=== PATIENT | male | born 1995 ===

== ENCOUNTER 2017-10-09 19:20 | Emergency (ER) | payer BC ==
[2017-10-09 19:35] VITALS: BP 120/74; PULSE 99; RESP 16; TEMP 97.9; O2SAT 98
--- NOTE | 2017-10-09 19:47 | ED PDOC ---
HPI: General Adult Time Seen by Provider: 10/09/17 19:40 Chief Complaint (Nursing): Lower Extremity Problem/Injury Chief Complaint (Provider): Ankle Injury History Per: Patient History/Exam Limitations: no limitations Onset/Duration Of Symptoms: Hrs (x 8) Current Symptoms Are (Timing): Still Present Additional Complaint(s): Tj is a 22 y/o male who presents to the ED complaining of left foot and ankle pain. Patient states that he was running and stepped off of a curb causing injury to foot and ankle. He has taken advil for the pain which did help. Patient able to walk and bear weight but with pain. PMD: Dr. Henry Past Medical History Reviewed: Historical Data, Nursing Documentation, Vital Signs Vital Signs: Last Vital Signs Temp 97.9 F 10/09/17 19:32 Pulse 99 H 10/09/17 19:32 Resp 16 10/09/17 19:32 BP 120/74 10/09/17 19:32 Pulse Ox 98 10/09/17 19:51 - Medical History PMH: No Chronic Diseases - Family History Family History: States: No Known Family Hx - Living Arrangements Living Arrangements: With Family - Social History Current smoker - smoking cessation education provided: No Alcohol: None Drugs: Denies - Home Medications Home Medications: Ambulatory Orders Medication Instructions Recorded Cyclobenzaprine HCl [Flexeril] 10 mg PO HS #10 tab 06/23/15 Ibuprofen [Motrin] 600 mg PO Q6 PRN #10 tab 06/23/15 - Allergies Allergies/Adverse Reactions: Allergies Allergy/AdvReac Type Severity Reaction Status Date / Time peanut Allergy ANAPHYLAXIS Verified 10/09/17 19:32 soy Allergy ANAPHYLAXIS Verified 10/09/17 19:32 tree nut Allergy ANAPHYLAXIS Verified 10/09/17 19:32 Review of Systems ROS Statement: Except As Marked, All Systems Reviewed And Found Negative Musculoskeletal: Positive for: Other (left foot and ankle injury) Physical Exam - Reviewed Nursing Documentation Reviewed: Yes Vital Signs Reviewed: Yes - Physical Exam Appears: Positive for: Well, Non-toxic, No Acute Distress Skin: Positive for: Normal Color. Negative for: Rash Eye Exam: Positive for: Normal appearance Back: Positive for: Normal Inspection. Negative for: L CVA Tenderness, R CVA Tenderness, Vertebral Tenderness, Decreased ROM Extremity: Positive for: Tenderness (diffusely to left foot and ankle region ), Swelling (diffuse left foot and ankle). Negative for: Deformity (no obvious bony deformity) Neurologic/Psych: Positive for: Alert, Oriented. Negative for: Motor/Sensory Deficits - ECG O2 Sat by Pulse Oximetry: 98 (RA) Pulse Ox Interpretation: Normal - Other Rad Left foot and ankle x-ray X-Ray: Interpreted by Me, Viewed By Me X-Ray Interpretation: no fx, no dis Medical Decision Making Medical Decision Making: Time: 19:44 Initial Impression: 22 y/o male with left foot and ankle injury status post fall Initial Plan: --XR Ankle Left 3 Views --XR Foot Left 3 Views --Pain meds declined in ED Patient is aware of x-ray results, all questions answered. Crutches provided, patient was instructed on proper use of crutches. Aircast and Will wrap applied. Patient advised to continue with ibuprofen for pain and was referred to podiatry clinic for follow up. Scribe Attestation: Documented by Shelton Tamez, acting as a scribe for Brittanie Figueroa PA-C. Provider Scribe Attestation: All medical record entries made by the Scribe were at my direction and personally dictated by me. I have reviewed the chart and agree that the record accurately reflects my personal performance of the history, physical exam, medical decision making, and the department course for this patient. I have also personally directed, reviewed, and agree with the discharge instructions and disposition. Procedures - Splinting Location: left foot and ankle Pre-Made Type: will wrap and aircast Pre-Proc Neuro Vasc Exam: normal Post-Proc Neuro Vasc Exam: normal Disposition - Clinical Impression Clinical Impression: Foot sprain, Ankle sprain and strain - Patient ED Disposition Is Patient to be Admitted: No Counseled Patient/Family Regarding: Studies Performed, Diagnosis, Need For Followup - Disposition Referrals: Podiatry Clinic [Outside] Disposition: Routine/Home Disposition Time: 20:34 Condition: STABLE Additional Instructions: Ice, rest and elevate affected area. Continue with [id number] ibuprofen for pain as needed. Follow up with primary doctor or podiatry clinic for any persistent symptoms. Instructions: Foot Sprain (DC), Ankle Sprain, How to Use Crutches Forms: [facility] (Mauritian), [facility] School/Work Excuse
--- NOTE | 2017-10-10 11:30 | RAD ---
PROCEDURE: Left Foot Radiographs. HISTORY: trauma COMPARISON: None. FINDINGS: BONES: Normal. No fracture. JOINTS: Normal. SOFT TISSUES: Normal. OTHER FINDINGS: None. IMPRESSION: Normal left foot radiographs.
--- NOTE | 2017-10-10 11:31 | RAD ---
PROCEDURE: Left Ankle Radiographs. HISTORY: trauma COMPARISON: None FINDINGS: BONES: Normal. No fracture. JOINTS: Normal. No osteoarthritis. Ankle mortise maintained. Talar dome intact SOFT TISSUES: Normal. OTHER FINDINGS: None. IMPRESSION: Normal left ankle radiographs.
== END 2017-10-09 21:10 | disposition home or self-care (01) ==
LOC: H.ER 19:20
DX: S93.602A Unspecified sprain of left foot, initial encounter (principal); S93.402A Sprain of unspecified ligament of left ankle, initial encounter; X50.1XXA Overexertion from prolonged static or awkward postures, initial encounter; Y93.02 Activity, running